=== PATIENT | female | born 1940 | race Caucasian/White ===

== ENCOUNTER → 2016-07-13 | Outpatient (CLI) | payer OTHER ==
[~2016-07-13] MED LIST: ADDERALL 10 MG10 M1 PO; AMRIX15 MG PO; ANTIDEPRESSANT; AUGMENTIN PO; CENTRUM SILVER PO; CITALOPRAM HBR40 MG; CITALOPRAM HBR40 MG PO; DEXTROAMPHETAMI10 MG PO; DIAZEPAM PO; HYDROCODON-ACE1 EACH PO; HYDROXYZINE HCL10 MG PO; IBUPROFEN800 MG PO; LEVOTHROID25 MCG PO; MULTIVITAMIN1 UDCAP; NEXIUM PO; PERCOCET10 PO; PRAVACHOL PO; PREVACID; PREVACID PO; TIROSINT25 MCG PO; VOLTAREN75 MG PO; ZANAFLEX PO; ZETIA PO
--- NOTE | ~2016-07-13 | CR212 ---
[facility] A Service of [facility] & [facility] RADIOLOGY TEXT RESULTS PATIENT: ALENA WILEY LOCATION: [facility] : 38 UNIT #: [id number] AGE: [address]: Marisel MoctezumaP SEX: F ORDER DR: [id number] [facility] [address] [place], [place] [address] [id number] O MR#: [id number] Acc #: [id number] NAME: ALENA WILEY : 1940 SEX: F STUDY DATE/TIME: 07/13/2016 14:28 UNIT: [facility] ROOM: STUDY DESCRIPTION: CR Ribs Unilateral 2 View Lt Attending Physician: Marisel Moctezuma A.P.R.N. Ordering Physician: Marisel Moctezuma A.P.R.N. Primary Care Physician: Marisel Moctezuma A.P.R.N. MEDICAL IMAGING REPORT This report is preliminary unless electronic signature is present EXAM Left ribs series total of 4 views dated 07/13/2016 COMPARISON Chest of the same date. FINDINGS 4 views of the ribs are obtained. The bony elements are intact and in normal alignment. No fractures, lytic or blastic lesions are seen. CONCLUSION Negative left rib series. Dictated by... Jose Aaron M.D. THIS IS AN ELECTRONICALLY VERIFIED REPORT Jose Aaron M.D. at 07/14/2016 5:04 PM Pamela TD: 07/14/2016 10:38 JOB #: [id number] MEDICAL IMAGING REPORT Page 1 of 1 COPY
--- NOTE | ~2016-07-13 | CR63 ---
[facility] A Service of [facility] & [facility] RADIOLOGY TEXT RESULTS PATIENT: ALENA WILEY LOCATION: [facility] : 38 UNIT #: [id number] AGE: [address]: Marisel Moctezuma [employer]UCK DRIVER HEAVY SEX: F ORDER DR: [id number] [facility] [address] [place], [place] [address] [id number] O MR#: [id number] Acc #: [id number] NAME: ALENA WILEY : 1940 SEX: F STUDY DATE/TIME: 07/13/2016 14:27 UNIT: [facility] ROOM: STUDY DESCRIPTION: CR Chest 2 View Attending Physician: Marisel Moctezuma A.P.R.N. Ordering Physician: Marisel Moctezuma A.P.R.N. Primary Care Physician: Marisel Moctezuma A.P.R.N. MEDICAL IMAGING REPORT This report is preliminary unless electronic signature is present EXAM Portable chest COMPARISON 04/10/2015 HISTORY SUPPLIED Left rib pain. Pain for 1 month, particularly when coughing. FINDINGS PA and lateral views of the chest are obtained. These are compared to a PA and lateral film of 04/10/2015. Cardiac size in the patient is stable. There is some minimal discoid atelectasis or scarring in the left base. There are scattered granulomata from prior granulomatous disease. No acute process is seen. CONCLUSION Mild scarring left lung base. Otherwise, negative chest. Dictated by... Jose Aaron M.D. THIS IS AN ELECTRONICALLY VERIFIED REPORT Jose Aaron M.D. at 07/14/2016 5:04 PM JANE/bertrand TD: 07/14/2016 10:01 JOB #: [id number] MEDICAL IMAGING REPORT Page 1 of 1 COPY
== END | disposition home or self-care (01) ==
LOC: CRAD 14:12
DX: R07.81 Pleurodynia (principal); J98.4 Other disorders of lung
CPT/HCPCS: 71020; 71100